=== PATIENT | female | born 1960 | race Caucasian/White ===

== ENCOUNTER 2017-01-10 10:02 | Emergency (ER) | payer BC ==
[~2017-01-10] VITALS: Ht 172.7 cm; Wt 87.1 kg
--- NOTE | 2017-01-10 11:01 | Urgent Treatment Center Report ---
History of Present Issue Date/Time Seen by Provider 01/10/17 1023 Visit Reason Pt arrived:Walked Presenting Problem:PT FELL IN A HOLE [place] NJURED HER RIGHT FOOT YESTERDAY Location if Accident: Onset of symptoms date/time:/ or onset unknown for:MEDICAL HX UNKNOWN Have you (or family members/close friends) recently traveled outside the [place]? N If Yes, where/when: Have you had exposure to infectious disease within the past month? TB? Other? Specify: Patient presents with sister with c/o right foot pain that started 1 day ago. States that she was walking at the soccer field and accidentally stepped in a hole that was covered with grass injuring her foot. Patient then went to work where she walks and stands on her feet all day. When she awakened this morning c /o right foot stiffness, swelling and pain. Took one dose of ibuprofen yesterday. Source patient, family Exam Limitations clinical condition (pain with movement) ALLERGIES Coded Allergies: Penicillins (Mild, 01/10/17) History Medical History General CAD? No Angina: No [place]: No Hypertension? Yes Hyperlipidemia? Yes CHF? No DVT? No PE? No COPD? No Asthma? No Anemia? No GERD? No Gastric ulcers? No GI Bleed? No Hernia? No Thyroid Problems? No Hypothyroidism? No CVA? No Seizures? No Diabetes? No Renal Insuffiency? No UTI? No Stones? No BPH? No GB Disease: No Nephritic Syndrome? No Asplenia? No Hepatitis? No Sickle Cell Disease? No Arthritis? No Migraines? No Cataracts? No Glaucoma? No MRSA? No HIV? No TB? No Anxiety? No Depression? No Cancer? No More? No Immunization HX DT/Tetanus > 10 YRS Surgical Hx Previous Surgery?Y BACK SURGERY L WRIST Social History Smoking Hx Smoker: Former Smoker Tobacco: Yes Type Cigarettes Packs/day < 1 Pack Alcohol Alcohol: No Review of Systems All Other Systems Reviewed and Negative Constitutional denies chills, denies fever Musculoskeletal joint pain (right foot), joint swelling (right foot and ankle) Skin denies change in color Physical Exam Vital Signs Vital Signs Date Time Temp Pulse Resp B/P Pulse O2 O2 Flow FiO2 Ox Delivery Rate 01/10 1103 97.9 96 16 144/79 98 01/10 1011 97.9 96 16 144/79 98 General Appearance WD/WN, no apparent distress Respiratory Status No: respiratory distress. Cardiovascular regular rate/rhythm, no murmur Peripheral Pulses Pulses normal Yes Comment DP/PT pulses 2+ bilaterally Extremities normal capillary refill, limited range of motion (right foot), swelling (right foot), Gait without walker steady with mild limp of the right; patient ambulated into exam room with a walker she had at home. Right dorsal foot: moderately edematous and slightly edematous; FROM with discomfort noted with flexion and extension (grimmacing noted). Strength 4 Lower Ext (R) Neurologic alert, normal exam, oriented x 3 Skin intact, normal color, warm/dry Medical Decision Making LABS/Meds/Orders Pt receiving controlled substance in ED? No Results/Orders Orders Procedure Date/time Status [facility] JOINT/AREA 01/10 1101 Active XRAY/CT/US XRAY/CT/US XRAY foot XR interpretation by reviewed by me Xray Results no fracture seen Departure Departure Time of Disposition 1056 Disposition DC Home or Self Care(routine) Clinical Impression Primary Impression: Right foot strain Qualifiers: Encounter type: initial encounter Qualified Code: S96.911A - Strain of unspecified muscle and tendon at ankle and foot level, right foot, initial encounter Condition STABLE Referrals Adán Pappas MD (Family) Patient Instructions DI for Foot Sprain Additional Instructions Rest, ice, brien wrap, and elevate as directed. Gentle ROM stretching as directed. Ortho referral if no improvement. Patient verbalizes understanding. Discharge Counseling Counseled pt/family regarding diagnosis, test results, medications/RX, home care, follow up needs Prescriptions Current Visit Scripts Ibuprofen (Ibuprofen 800MG) 800 MG PO TIDP PRN pain #30 TAB at [id number]
[2017-01-10 11:03] VITALS: BP 144/79
--- NOTE | 2017-01-10 11:12 | RADIOLOGY REPORT PS360 ---
FOOT-RT-3 VIEWS HISTORY: FALL WITH PAIN step in hole. Redness pain anterior and mid metatarsals.. Patient Age: 56 years: Female Ordering Physician: SAQIB FONG APRN TECHNIQUE: 3 views right foot COMPARISON : FINDINGS Right foot is intact with no fracture evident. . No acute findings . Specifically the metatarsals appear intact on these views. . The joint spaces are well-maintained. A borderline narrowing at the IP joint of toes. There is some mild soft tissue swelling at the foot best appreciated on the lateral view. IMPRESSION: 1. No fracture nor dislocation evident.
--- OUTSIDE RECORDS SUMMARY | 2017-01-20 21:11 | External Medical Summary Rpt ---
Demographics Preferred Language Bermudian Marital Status Unknown Zoroastrian Affiliation Unknown Race Unknown Ethnic Group Unknown Author Author , SHANTAL LUI Address Unknown Phone [email or web address] Immunization Name Date Rout CVX Reac Dose Comm Prov Is Faci e tion ent ider Refu lity Give sed n Td 03-0 9 999 Hist H149 No H149 (alcon 8-19 ori lt), 97 al Info adso rmat rbed ion - Sour ce Unsp ecif ied
--- OUTSIDE RECORDS SUMMARY | 2017-01-20 21:11 | External Medical Summary Rpt ---
Author Author [facility], [facility] Organization [employer] Address Unknown Phone Unavailable
--- OUTSIDE RECORDS SUMMARY | 2017-01-20 21:11 | External Medical Summary Rpt | CCD ---
Author Author [employer] Organization [employer] Address Unknown Phone Unavailable Purpose Continuity of Care Document - through 2016
--- OUTSIDE RECORDS SUMMARY | 2017-01-20 21:11 | External Medical Summary Rpt ---
Demographics Preferred Language Guamanian Marital Status Unknown Oriental Orthodox Affiliation Unknown Race Unknown Ethnic Group Unknown Author Author , SHANTAL LUI Address Unknown Phone [email or web address] Immunization Name Date Rout CVX Reac Dose Comm Prov Is Faci e tion ent ider Refu lity Give sed n Td 03-0 9 999 Hist H149 No H149 (alcon 8-19 ori lt), 97 al Info adso rmat rbed ion - Sour ce Unsp ecif ied
--- OUTSIDE RECORDS SUMMARY | 2017-01-20 21:11 | External Medical Summary Rpt ---
Author Author [facility] Address Unknown Phone [email or web address] Purpose Continuity of Care Document - through 2016
--- OUTSIDE RECORDS SUMMARY | 2017-01-20 21:11 | External Medical Summary Rpt ---
Author Author [facility] Address Unknown Phone [email or web address] Purpose Continuity of Care Document - through 2016
== END 2017-01-10 11:03 | disposition home or self-care (01) ==
LOC: UTC 10:02
DX: S96.911A Strain of unspecified muscle and tendon at ankle and foot level, right foot, initial encounter (principal); I10 Essential (primary) hypertension; Z87.891 Personal history of nicotine dependence; W17.2XXA Fall into hole, initial encounter; Y92.89 Other specified places as the place of occurrence of the external cause